=== PATIENT | male | born 1985 | race African-American/Black ===

== ENCOUNTER 2025-10-03 07:33 | Inpatient (IN) | payer MEDICAID, SELFPAY ==
[2025-10-03] VITALS (12 sets, daily range): BP systolic 122–149; BP diastolic 62–102; PULSE 88–162; RESP 15–24; TEMP 36.5–37.2; O2SAT 84–98; BMI 29.0; BMI 30.2
--- NOTE | ~2025-10-03 | XR_ITS ---
EXAMINATION: XR CHEST 1 VIEW HISTORY: SOB COMPARISON: There are no prior studies available for comparison. FINDINGS: A single AP portable view of the chest performed at 9:50 AM is submitted. The lungs are expanded and clear. There is no pleural effusion, pneumothorax, or pulmonary vascular congestion. The heart is normal in size. The bones are intact. XR/XR chest 1V IMPRESSION: Clear lungs. Electronically signed by: Dilip Hidalgo MD 10/03/2025 09:58 AM [facility]
--- NOTE | 2025-10-03 07:47 | ECG_ITS ---
Test Reason : RHYTHM CK Blood Pressure : */* mmHG Vent. Rate : 102 BPM Atrial Rate : 102 BPM P-R Int : 146 ms QRS Dur : 78 ms QT Int : 356 ms P-R-T Axes : 82 57 71 degrees QTcB Int : 463 ms Sinus tachycardia Nonspecific T wave abnormality Abnormal ECG No previous ECGs available Referred By: Olga Gonzalez Electronically Signed By: JOSE MAY MD
--- NOTE | 2025-10-03 07:49 | ED_ITS ---
HPI - SOB/Dyspnea General Chief Complaint: Dyspnea Stated Complaint: DIFF BREATHING,ASTHMA ATTACK,CPAP Time Seen by Provider: 10/03/25 07:37 Source: patient and EMS Mode of arrival: EMS Limitations: no limitations History of Present Illness ED Provider: DR. Farrell HPI Narrative: a 39-year-old male history of asthma came in for evaluation of difficulty breathing for the past 3 days, found by EMS in acute respiratory distress and O2 sat was 84% on room air patient was given bronchodilator by EMS with no improvement patient was placed on CPAP and was transported to the hospital on arrival O2 sat was improved to 95% was mild improvement of patient's symptoms. Patient was given 2 g of IV magnesium and to bronchodilators. No recent travel, no recent prolonged immobilization, no lower extremity swelling or tenderness, no fever, no chills. No history of cigarette smoking patient is smokes marijuana daily. Related Data Allergies Allergy/AdvReac Type Severity Reaction Status Date / Time No Known Allergies Allergy Verified 10/03/25 07:44 Review of Systems 2 Review of Systems: All other systems are reviewed and are negative Constitutional: Reports as per HPI and Reports no additional constitutional complaints Eyes: Reports as per HPI and Reports no additional eye complaints Reports system reviewed and no additional complaints, except as documented Cardiovascular: Reports as per HPI and Reports no additional cardiovascular complaints Respiratory: Reports as per HPI and Reports no additional respiratory complaints Gastrointestinal: Reports as per HPI and Reports no additional gastrointestinal complaints Genitourinary: Reports no additional female genitourinary complaints Musculoskeletal: Reports no additional musculoskeletal complaints Skin/Breast: Reports system reviewed and no additional complaints, except as docu Psychiatric: Reports no additional psychiatric complaints Endocrine: Reports no additional endocrine complaints Hematologic/Lymphatic: Reports no additional hematologic/lymphatic complaints Allergic/Immunologic: Reports no additional allergic/immunologic complaints Reports system reviewed and no additional complaints, except as documented and Reports Abnormal speech present [facility] Social History Social History Advance Directives: No Advance Directives Information Provided: Yes Do you have a plan to hurt others: No Plan Physical Exam 2 Vital Signs: Vital Signs: Last Vital Signs Temp 98.3 F 10/03/25 10:07 Pulse 94 10/03/25 10:07 Resp 15 10/03/25 10:07 BP 122/62 10/03/25 10:07 Pulse Ox 91 L 10/03/25 10:07 O2 Del Method Nasal Cannula 10/03/25 10:07 O2 Flow Rate 3 10/03/25 10:07 Oxygen Flow Rate 5 10/03/25 07:38 BMI result Body Mass Index 29.0 Vital signs have been reviewed and appear to be correct. Blood pressure elevated. Heart rate normal. Respiratory rate normal. Temperature normal. Oxygen saturation normal. Appearance: Alert. Oriented X3. No acute distress. Head: Normal external exam. Normocephalic. Atraumatic. No Valdez signs noted. No raccoon eyes noted Eyes: PERRLA. EOMI. Conjunctiva and sclera normal. Eyelids normal. ENT: TM's Normal. Pharynx normal. Uvula midline. Moist mucous membranes. No trismus noted. No drooling noted. No muffled voice noted. Neck: Normal inspection. Neck supple. FROM. No adenopathy. Thyroid Normal. No meningeal signs. No neck mass noted. CVS: Normal heart rate and rhythm. Heart sound normal. No murmurs noted. Pulses normal throughout. Respiratory: Mild diffuse expiratory wheezing with prolonged expiration, mild intercostal retraction. Abdomen: Soft and nontender. Bowel sounds normal in all 4 quadrants. No distention noted. No organomegaly noted. No visible injury noted. Back: No CVA tenderness. Full range of motion noted. Skin: Skin warm and dry. Normal skin color. Normal skin turgor. No rashes/lesions/lacerations noted. Extremities: No lower extremity edema. Extremities exhibit normal range of motion. Extremities nontender. Neuro: Oriented X 3. Cranial nerve exam: II-XII are grossly intact No motor deficit. No sensory deficit. Reflexes normal. Course Reevaluation(s) Reevaluation #1: 39 year old male history of asthma +/- COPD presented with acute respiratory distress and hypoxia improved with oxygen and bronchodilator in the ED. Admit the patient for intermittent hypoxia and bronchodilator if needed. Received 1 dose of empirical doxycycline, chest x-ray shows no pneumonia. Admit for O2 monitoring. Time: 10:26 Medications Administered Discontinued Medications Generic Name Dose Route Start Last Admin Trade Name Freq PRN Reason Stop Dose Admin Levalbuterol HCl 3.75 mg/ 0 mg 10/03/25 07:52 10/03/25 07:54 Ipratropium [place] 0.5 mg INHALE 10/03/25 07:53 1 dose ONCE ONE Administration Doxycycline Hyclate 100 mg/ 250 mls @ 166.67 mls/hr 10/03/25 07:47 10/03/25 09:44 Sodium Chloride IV 10/03/25 09:16 Infused ONCE ONE Infusion Medical Decision Making Differential Diagnosis Differential Diagnoses: The differential diagnosis associated with the presentation includes ( Acute asthma exacerbation, pneumonia, pneumothorax, pleural effusion, CHF, ACS.) Admission/Observation Consideration of admission/observation: Escalation of care including admission/observation considered Consult Healthcare Provider Management of the patient was discussed with: Hospitalist ( Dr. Wallace) Lab Data MDM Lab Attestation statement: I reviewed the patient's lab results. 10/03/25 07:52 10/03/25 07:52 Labs: Lab Results 10/03/25 10/03/25 10/03/25 Range/Units 07:52 07:57 08:08 WBC 10.2 (4.8-10.8) X10*3/uL RBC 4.78 (4.60-5.80) X10*6/uL Hgb 15.1 (14.0-18.0) g/dl Hct 44.7 (42.0-52.0) % MCV 93.5 (80.0-98.0) fL MCH 31.6 (27.0-33.0) pg MCHC 33.8 (31.0-36.0) g/dl RDW 11.8 (11.0-16.0) % Plt Count 253 (160-400) X10*3/uL MPV 9.0 L (9.4-12.4) fL Immature Gran % (Auto) 0.3 (0.0-0.4) % Neut % (Auto) 62.0 (45-73) % Lymph % (Auto) 20.5 (20-40) % Yell % (Auto) 8.3 (2-11) % Eos % (Auto) 8.5 H (0-4) % Baso % (Auto) 0.4 (0-2) % Lymph # (Auto) 2.1 (1.2-4.9) X10*3/uL Yell # (Auto) 0.9 (0.1-1.2) X10*3/uL Eos # (Auto) 0.9 H (0.0-0.4) X10*3/uL Baso # (Auto) 0.0 (0.0-0.2) X10*3/uL Abs Immat Gran (auto) 0.03 (0.00-0.03) X10*3/uL Absolute Neuts (auto) 6.3 (2.0-8.3) x10*3/uL Absolute Nucleated RBC 0.000 (0.0-0.012) X10*3/uL Nucleated RBC % (auto) 0.0 (0.0-0.2) /100WBC PT 11.2 (11.2-13.5) SEC INR 0.9 (0.9-1.1) Sodium 141 (135-145) mmol/L Potassium 3.9 (3.3-5.1) mmol/L Chloride 106 (96-108) mmol/L Carbon Dioxide 25 (22-29) mmol/L Anion Gap 14 (12-20) BUN 21 H (9-16) mg/dL Creatinine 1.11 (0.5-1.4) mg/dL Estim Creat Clear Calc 90.7 Estimated GFR > 60 Random Glucose 166 H (60-115) mg/dL Lactic Acid 1.2 (0.5-2.0) mmol/L Calcium 9.0 (8.4-10.2) mg/dL Total Bilirubin 1.2 H (0.0-1.0) mg/dL Direct Bilirubin 0.4 (0.0-0.5) mg/dL AST 39 H (5-37) U/L ALT 33 (0-40) U/L Alkaline Phosphatase 42 (39-117) U/L Troponin I High Sens 3.4 (<3.5-35.0) ng/L Total Protein 7.3 (6.5-8.0) g/dL Albumin 4.5 (3.5-5.0) g/dL Lipase 16 (8-78) U/L Influenza Type A (PCR) NEGATIVE (Negative) Influenza Type B (PCR) NEGATIVE (Negative) RSV RNA Qual (PCR) NEGATIVE (Negative) SARS-CoV-2 RNA (RT-PCR) NEGATIVE (Negative) Independent Interpretation I performed an independent interpretation of an: Plain X-Ray ( chest: Clear lungs) Radiology Impression Discussion of test interpretation with radiology: I have reviewed the radiologist's reading. Discharge Plan Discharge Clinical Impression: Asthma with exacerbation, Hypoxia Patient Disposition: Admitted As Inpatient Print Language: Danish
[2025-10-03] MEDS: levalbuterol HCL 3.75 MG, Ipratropium Bromide 0.5 MG INHALE (07:54)
[2025-10-03 07:57] LABS: MANUAL DIFF FLAG NO
[2025-10-03 08:01] LABS: Hematocrit 44.7 % (42.0-52.0); Hemoglobin 15.1 g/dl (14.0-18.0); Imm Gran Abs Auto 0.03 X10*3/uL (0.00-0.03); Imm Gran Pct Auto 0.3 % (0.0-0.4); Lymphocytes Absolute Auto 2.1 X10*3/uL (1.2-4.9); Mean Corpuscular HGB Conc 33.8 g/dl (31.0-36.0); Mean Corpuscular Hemoglobin 31.6 pg (27.0-33.0); Mean Corpuscular Volume 93.5 fL (80.0-98.0); NRBC Abs Auto 0.000 X10*3/uL (0.0-0.012); NRBC Pct Auto 0.0 /100WBC (0.0-0.2); Platelet Count 253 X10*3/uL (160-400); Red Blood Count 4.78 X10*6/uL (4.60-5.80); White Blood Count 10.2 X10*3/uL (4.8-10.8)
[2025-10-03 08:12] LABS: Alanine Aminotransferase 33 U/L (0-40); Albumin Level 4.5 g/dL (3.5-5.0); Alkaline Phosphatase 42 U/L (39-117); Anion Gap 14 (12-20); Aspartate Amino Transferase 39 U/L (5-37); Blood Urea Nitrogen 21 mg/dL (9-16); Calcium 9.0 mg/dL (8.4-10.2); Carbon Dioxide 25 mmol/L (22-29); Chloride 106 mmol/L (96-108); Creatinine Clr Calc Pharmacy 90.7; Estimated Glomerular Filt Rate > 60; Lipase 16 U/L (8-78); Potassium 3.9 mmol/L (3.3-5.1); Sodium 141 mmol/L (135-145); Total Protein 7.3 g/dL (6.5-8.0)
[2025-10-03 08:19] LABS: Troponin-I High Sensitivity 3.4 ng/L (<3.5-35.0)
[2025-10-03 08:20] LABS: INTERNATIONAL NORM RATIO 0.9 (0.9-1.1); Prothrombin Time 11.2 SEC (11.2-13.5)
[2025-10-03 08:39] LABS: Resp Syncy Virus RNA Qual PCR NEGATIVE (Negative); SARS COV2 PCR INHOUSE NEGATIVE (Negative)
--- NOTE | 2025-10-03 10:29 | PM.IMHP ---
[facility] Social History Advance Directives: No Advance Directives Information Provided: Yes Do you have a plan to hurt others: No Plan Meds Allergies Allergy/AdvReac Type Severity Reaction Status Date / Time No Known Allergies Allergy Verified 10/03/25 07:44 Physical Exam Vital Signs and Narrative: Vital Signs: Last Vital Signs Temp 98.3 F 10/03/25 10:07 Pulse 94 10/03/25 10:07 Resp 15 10/03/25 10:07 BP 122/62 10/03/25 10:07 Pulse Ox 91 L 10/03/25 10:07 O2 Del Method Nasal Cannula 10/03/25 10:07 O2 Flow Rate 3 10/03/25 10:07 Oxygen Flow Rate 5 10/03/25 07:38 BMI result Body Mass Index 29.0 Results Labs 10/03/25 07:52 10/03/25 07:52 Labs: Laboratory Results - last 24 hr 10/03/25 10/03/25 10/03/25 07:52 07:57 08:08 MCV 93.5 MCH 31.6 MCHC 33.8 RDW 11.8 Plt Count 253 MPV 9.0 L Immature Gran % (Auto) 0.3 Neut % (Auto) 62.0 Lymph % (Auto) 20.5 [place] % (Auto) 8.3 Eos % (Auto) 8.5 H Baso % (Auto) 0.4 Lymph # (Auto) 2.1 [place] # (Auto) 0.9 Eos # (Auto) 0.9 H Baso # (Auto) 0.0 Abs Immat Gran (auto) 0.03 Absolute Neuts (auto) 6.3 Absolute Nucleated RBC 0.000 Nucleated RBC % (auto) 0.0 PT 11.2 INR 0.9 Anion Gap 14 Estim Creat Clear Calc 90.7 Estimated GFR > 60 Random Glucose 166 H Lactic Acid 1.2 Calcium 9.0 Total Bilirubin 1.2 H Direct Bilirubin 0.4 AST 39 H ALT 33 Alkaline Phosphatase 42 Troponin I High Sens 3.4 Total Protein 7.3 Albumin 4.5 Lipase 16 Influenza Type A (PCR) NEGATIVE Influenza Type B (PCR) NEGATIVE RSV RNA Qual (PCR) NEGATIVE SARS-CoV-2 RNA (RT-PCR) NEGATIVE Imaging Radiologist's Impressions: Impressions Chest X-Ray 10/03/25 09:50 IMPRESSION: Clear lungs. Electronically signed by: Dilip Hidalgo MD 10/03/2025 09:58 AM [facility]
--- NOTE | 2025-10-03 11:20 | PHA.MEDREC ---
Addendum entered by Mook Caba, PharmD 10/03/25 12:03: [facility] reviewed. Spiriva is 2 puffs daily. Original Note: Pharmacy Consult ? Medication Reconciliation Pharmacy has completed the medication reconciliation. Spoke with pt and he confirmed he is only taking inhalers (Spiriva 1.25mcg 1 puff daily, Breo Ellipta 200-25mcg 1 puff daily and Ventolin 2 puffs Q4H PRN Shortness of Breath or Wheezing) and nothing else at this time for medications.
--- NOTE | 2025-10-03 12:19 | P.HPHOSP_ITS ---
History of Present Illness Date of Service: 10/03/25 Chief Complaint: Shortness of breath 39-year-old male with past medical history significant for mild persistent asthma. Brought in to [place] ED by EMS in acute respiratory distress with O2 sat 84% on room air. EMS treated patient with bronchodilator, place him on CPAP and oxygen. Patient complain of shortness of breath of 2-3 days' associated with cough, productive of clear phlegm, he denies fever, chills. Patient denies sick contacts he works at [employer], he has 2 cats not new, he has allergy to cold he started using his rescue inhaler more frequently in last 1 month. At baseline use albuterol and Breo he has been using them religiously with no significant improvement. In emergency room patient treated with 2 g of IV magnesium and 2 rounds of bronchodilators, at present he is on 2 L of oxygen, he is not on home O2. Patient denies history of tobacco use, he has been smoking marijuana occasionally. He denies recent history of travel. Review of Systems 2 Review of Systems: General no headache no dizziness no fever chills. CVS no chest pain, no palpitation. Respiratory shortness of breath and cough Gastrointestinal no nausea no vomiting, no abdominal pain no urgency, no frequency All other system reviewed and are negative PMFSH Social History Advance Directives: No Advance Directives Information Provided: Yes Do you have a plan to hurt others: No Plan Meds Allergies Allergy/AdvReac Type Severity Reaction Status Date / Time No Known Allergies Allergy Verified 10/03/25 07:44 Home Medications ?Medication ?Instructions ?Recorded ?Confirmed ?Last Taken ?Type albuterol sulfate 90 mcg/actuation 2 puff inhalation Q 4-6H PRN 10/03/25 10/03/25 Unknown History aerosol inhaler (Ventolin HFA) wheezing fluticasone furoate 200 1 inh inhalation DAILY 10/0310/03/25 10/03/25 History mcg-vilanterol 25 mcg/dose inhalation powder (Breo Ellipta) tiotropium bromide 1.25 2 puff inhalation DAILY 09/1210/03/25 10/03/25 History mcg/actuation mist for inhalation (Spiriva Respimat) Physical Exam 2 Vital Signs and Narrative: Vital Signs: Last Vital Signs Temp 98.3 F 10/03/25 10:07 Pulse 94 10/03/25 10:07 Resp 15 10/03/25 10:07 BP 122/62 10/03/25 10:07 Pulse Ox 91 L 10/03/25 10:07 O2 Del Method Nasal Cannula 10/03/25 10:07 O2 Flow Rate 3 10/03/25 10:07 Oxygen Flow Rate 5 10/03/25 07:38 BMI result Body Mass Index 29.0 Const: Other: General well-developed gentleman mild respiratory distress, tachypnea Neck supple no JVD. CVS regular rate rhythm, Respiratory lungs bilateral expiratory wheeze Gastrointestinal abdomen soft, non tender, bowel sounds audible, no guarding , no rigidity. Extremities no edema. Neuro nonfocal Skin no rash Psych appropriate affect Results Labs 10/03/25 07:52 10/03/25 07:52 Labs: Laboratory Results - last 24 hr 10/03/25 10/03/25 10/03/25 07:52 07:57 08:08 MCV 93.5 MCH 31.6 MCHC 33.8 RDW 11.8 Plt Count 253 MPV 9.0 L Immature Gran % (Auto) 0.3 Neut % (Auto) 62.0 Lymph % (Auto) 20.5 [place] % (Auto) 8.3 Eos % (Auto) 8.5 H Baso % (Auto) 0.4 Lymph # (Auto) 2.1 [place] # (Auto) 0.9 Eos # (Auto) 0.9 H Baso # (Auto) 0.0 Abs Immat Gran (auto) 0.03 Absolute Neuts (auto) 6.3 Absolute Nucleated RBC 0.000 Nucleated RBC % (auto) 0.0 PT 11.2 INR 0.9 Anion Gap 14 Estim Creat Clear Calc 90.7 Estimated GFR > 60 Random Glucose 166 H Lactic Acid 1.2 Calcium 9.0 Total Bilirubin 1.2 H Direct Bilirubin 0.4 AST 39 H ALT 33 Alkaline Phosphatase 42 Troponin I High Sens 3.4 Total Protein 7.3 Albumin 4.5 Lipase 16 Influenza Type A (PCR) NEGATIVE Influenza Type B (PCR) NEGATIVE RSV RNA Qual (PCR) NEGATIVE SARS-CoV-2 RNA (RT-PCR) NEGATIVE Imaging Radiologist's Impressions: Impressions Chest X-Ray 10/03/25 09:50 IMPRESSION: Clear lungs. Electronically signed by: Dilip Hidalgo MD 10/03/2025 09:58 AM [facility] Assessment and Plan (1) Asthma with exacerbation: Status: Acute (2) Hypoxia: Status: Acute Plan 39-year-old gentleman with history of mild persistent asthma presented with shortness of breath of 2-3 days' duration. Patient arrived on CPAP and oxygen. Acute hypoxic respiratory failure due to exacerbation of mild persistent asthma. Chest x-ray negative, influenza, RSV and COVID negative IV Solu Medrol 40 mg b.i.d., DuoNeb q.4 hours scheduled and as needed continue Breo IV doxycycline, cough medication, wean oxygen as tolerated not on home O2 Strongly recommend to abstain from marijuana History of alcohol use disorder Currently drink alcohol occasionally Code status full code DVT prophylaxis early ambulation In my clinical judgment patient requires 2 midnight inpatient hospitalization for management of acute hypoxic respiratory failure requiring IV steroids updraft treatment, since had no response to home inhalers. Quality Stroke Does the patient have a stroke diagnosis?: No VTE Prior VTE?: No VTE Risk Level:: Medical - low VTE Device Contraindication: Treatment Not Indicated VTE Drug Contraindication: Treatment Not Indicated
--- NOTE | 2025-10-03 14:00 | HO.NURTONUR ---
Pt is a 39yo M coming from home with hx of asthma, 2-3 days SOB. Denies fevers/chills. +productive cough. Inc inhaler use. Pt received IV mag and bronchodilators RN ED. Initial RA sat 84%. Arrived on CPAP. Pt is now on 2LNC. Satting 93-94%. Afebrile. A/ox3. Denies c/o at this time. VSS. 18g LAC and 20gRFA. Bld cxs drawn and IVabx given.
[2025-10-03] MEDS: Albuterol/Iprat 2.5/0.5MG 3 ML AMPUL.NEB INHALE ×2 (15:32→19:20)
[2025-10-03] MEDS: 0.9 % Sodium Chloride Flush 3 ML SYRINGE IVFLUSH (20:20)
[2025-10-04 03:29] VITALS: BP 122/68; PULSE 91; RESP 18; TEMP 36.7; O2SAT 95
--- NOTE | 2025-10-04 07:16 | HO.PM.IMPN ---
Subjective Subjective Date of Service: 10/04/25 Physical Exam Vital Signs: Vital Signs: Last Vital Signs Temp 98.1 F 10/04/25 03:29 Pulse 91 10/04/25 03:29 Resp 18 10/04/25 03:29 BP 122/68 10/04/25 03:29 Pulse Ox 95 10/04/25 03:29 O2 Del Method Room Air 10/04/25 03:29 O2 Flow Rate 2 10/03/25 19:47 Oxygen Flow Rate 5 10/03/25 07:38 BMI result Body Mass Index 30.2 Objective Data Active Medications Acetaminophen (Acetaminophen 325 Mg Tablet) 650 mg PO Q6H PRN PRN Reason: Pain, Mild 1-3,fever,headache Al Hydroxide/Mg Hydroxide (Magnesium Hydrox/Alum Hydrox 30 Ml Oral.Susp) 30 ml PO Q4H PRN PRN Reason: Heartburn Albuterol/Ipratropium (Albuterol/Iprat 2.5/0.5mg 3 Ml Ampul.Neb) 3 ml INHALE Q4H PRN PRN Reason: sob Albuterol/Ipratropium (Albuterol/Iprat 2.5/0.5mg 3 Ml Ampul.Neb) 3 ml INHALE RQ4H WHILE AWAKE [facility] Last Admin: 10/03/25 19:20 Dose: 3 ml Documented By: JULIANE Benzonatate (Benzonatate 100 Mg Capsule) 100 mg PO TID PRN PRN Reason: Cough Calcium Carbonate (Calcium Carbonate 750 Mg Tab.Chew) 750 mg PO Q4H PRN PRN Reason: Heartburn Fluticasone/Vilanterol (Fluticasone/Vilanterol 200/25 Blst.W.Dev) 1 puff INHALE RDAILY [facility] Doxycycline Hyclate 100 mg/ (Sodium Chloride) 250 mls @ 166.67 mls/hr IV BID [facility] Last Infusion: 10/03/25 21:50 Dose: Infused Documented By: SARAH Loratadine (Loratadine 10 Mg Tablet) 10 mg PO DAILY [facility] Last Admin: 10/03/25 13:51 Dose: 10 mg Documented By: SAMANTHA Magnesium Hydroxide (Milk Of Magnesia 30 Ml Oral.Susp) 30 ml PO DAILY PRN PRN Reason: Constipation Melatonin (Melatonin 3 Mg Tablet) 6 mg PO BEDTIME PRN PRN Reason: Insomnia Methylprednisolone Sodium Succinate (Methylprednisolone Sod Succ 40 Mg/Ml Vial) 40 mg IVPUSH BID [facility] Last Admin: 10/03/25 20:20 Dose: 40 mg Documented By: SARAH Ondansetron HCl (Ondansetron Hcl 4 Mg/2 Ml Vial) 4 mg IVPUSH Q8H PRN PRN Reason: Nausea and Vomiting Polyethylene Glycol (Polyethylene Glycol 3350 17 Gm Powd.Pack) 17 gm PO DAILY PRN PRN Reason: Constipation Sodium Chloride (0.9 % Sodium Chloride Flush 3 Ml Syringe) 3 ml IVFLUSH QSHIFT [facility] Last Admin: 10/03/25 20:20 Dose: 3 ml Documented By: SARAH Labs 10/03/25 07:52 10/03/25 07:52 Labs: Laboratory Results - last 24 hr 10/03/25 10/03/25 10/03/25 07:52 07:57 08:08 MCV 93.5 MCH 31.6 MCHC 33.8 RDW 11.8 Plt Count 253 MPV 9.0 L Immature Gran % (Auto) 0.3 Neut % (Auto) 62.0 Lymph % (Auto) 20.5 [place] % (Auto) 8.3 Eos % (Auto) 8.5 H Baso % (Auto) 0.4 Lymph # (Auto) 2.1 [place] # (Auto) 0.9 Eos # (Auto) 0.9 H Baso # (Auto) 0.0 Abs Immat Gran (auto) 0.03 Absolute Neuts (auto) 6.3 Absolute Nucleated RBC 0.000 Nucleated RBC % (auto) 0.0 PT 11.2 INR 0.9 Anion Gap 14 Estim Creat Clear Calc 90.7 Estimated GFR > 60 Random Glucose 166 H Lactic Acid 1.2 Calcium 9.0 Total Bilirubin 1.2 H Direct Bilirubin 0.4 AST 39 H ALT 33 Alkaline Phosphatase 42 Troponin I High Sens 3.4 Total Protein 7.3 Albumin 4.5 Lipase 16 Influenza Type A (PCR) NEGATIVE Influenza Type B (PCR) NEGATIVE RSV RNA Qual (PCR) NEGATIVE SARS-CoV-2 RNA (RT-PCR) NEGATIVE Quality Stroke Does the patient have a stroke diagnosis?: No VTE Prior VTE?: No VTE Risk Level:: Medical - low VTE Device Contraindication: Treatment Not Indicated VTE Drug Contraindication: Treatment Not Indicated
[2025-10-04 07:46] VITALS: BP 126/75; PULSE 64; RESP 18; TEMP 36.8; O2SAT 95
[2025-10-04 07:50] VITALS: PULSE 84; RESP 18; O2SAT 93
[2025-10-04] MEDS: Albuterol/Iprat 2.5/0.5MG 3 ML AMPUL.NEB INHALE ×2 (07:50→11:31)
[2025-10-04] MEDS: 0.9 % Sodium Chloride Flush 3 ML SYRINGE IVFLUSH (09:46)
[2025-10-04] MEDS: Fluticasone/Vilanterol 200/25 BLST.W.DEV 1 PUFF INHALE (09:51)
--- NOTE | 2025-10-04 10:22 | MHC.CM.PN ---
Pt. is functionally indepedent, he does not use home health services. He does not have a PCP, brochure given. Pt. to DC today, [facility] shuttle to transport, DCP: home, self care.
[2025-10-04 11:32] VITALS: PULSE 100; RESP 18; O2SAT 96
--- NOTE | 2025-10-04 12:02 | P.DS_ITS ---
DS: Providers Provider Date of admission: 10/03/25 10:43 Date of discharge: 10/04/25 Primary care physician: None Physician DS: Diagnosis Discharge Diagnosis (1) Asthma with exacerbation: Status: Acute (2) Hypoxia: Status: Acute DS: Summary Hospital Course Hospital Course: Chief Complaint: Shortness of breath 39-year-old male with past medical history significant for mild persistent asthma. Brought in to [facility] by EMS in acute respiratory distress with O2 sat 84% on room air. EMS treated patient with bronchodilator, place him on CPAP and oxygen. Patient complain of shortness of breath of 2-3 days' associated wi th cough, productive of clear phlegm, he denies fever, chills. Patient denies sick contacts he works at [employer], he has 2 cats not new, he has allergy to cold he started using his rescue inhaler more frequently in last 1 month. At baseline use albuterol and Breo he has been using them religiously with no significant improvement. In emergency room patient treated with 2 g of IV magnesium and 2 rounds of bronchodilators, at present he is on 2 L of oxygen, he is not on home O2. Patient denies history of tobacco use, he has been smoking marijuana occasionally. He denies recent history of travel. Hospital Course: The patient presented with 2?3 days of worsening shortness of breath and arrived on CPAP with supplemental oxygen. Initial evaluation showed acute hypoxic respiratory failure secondary to an asthma exacerbation. Chest X-ray was negative, and infectious testing including influenza, RSV, and COVID was negative. He was treated with IV methylprednisolone 40 mg twice daily, scheduled and as- needed DuoNeb treatments, continuation of home Breo, cough medication, and supplemental oxygen. IV doxycycline was initiated. The patient demonstrated rapid clinical improvement with resolution of hypoxia, was successfully weaned off oxygen, and no longer required CPAP. Symptoms improved significantly within a short period of observation. Although inpatient hospitalization for a 2-midnight stay was initially anticipated due to the severity of presentation and need for IV steroids and frequent nebulizer treatments, the patient experienced a [id number] recovery and requested discharge due to the upcoming holiday. At the time of discharge, he was breathing comfortably on room air, hemodynamically stable, and ambulating without difficulty. Time spent discussing smoking cessation with patient: more than 10 minutes Status at Discharge Functional status at discharge: independent ambulation Overall status at discharge: patient is back to baseline Time Attestation Discharge Coordination Time (in mins): 55 Quality: Safe Use of Opioids Does Pt have an Active Cancer Diagnosis on the Problem List?: No Quality: Stroke Does the patient have a stroke diagnosis?: No Physical Exam Exam: Exam: General: AOx3, no acute distress Resp: CTA bilaterally CVS: S1, S2, RRR GI: +BS, NT, no distention Skin: Warm, dry Neuro: Cranial nerves II-XII grossly intact bilaterally. Motor grossly intact bilaterally Extremities: No edema Psych: Appropriate affect Vital Signs: Vital Signs: Last Vital Signs Temp 98.3 F 10/04/25 07:46 Pulse 100 10/04/25 11:32 Resp 18 10/04/25 11:32 BP 126/75 10/04/25 07:46 Pulse Ox 95 10/04/25 07:46 O2 Del Method Room Air 10/04/25 07:46 O2 Flow Rate 2 10/03/25 19:47 Oxygen Flow Rate 5 10/03/25 07:38 BMI result Body Mass Index 30.2 DS: Data Data Completed and Pending Labs on day of discharge: Preliminary micro results at discharge 10/03/25 08:08 Blood Culture - Preliminary Blood - Venous No growth after 24 hours. 10/03/25 07:57 Blood Culture - Preliminary Blood - Venous No growth after 24 hours. Discharge Plan Discharge Anticipated Discharge Date/Time: 10/04/25 11:52 Patient Disposition: Home, Self-Care Discharge Diagnosis: Asthma exacerbation Referrals: Physician,None [Primary Care Provider, Medical] - 1 Week Discharge Medications: New doxycycline hyclate [Doxy-100] 100 mg Recon Soln 100 mg IV BID 3 Days Qty: 6 0RF loratadine 10 mg Tablet 10 mg PO DAILY 30 Days Qty: 30 0RF benzonatate 100 mg Capsule 100 mg PO TID PRN (Reason: Cough) 14 Days Qty: 60 3RF prednisone 20 mg tablet 40 mg PO DAILY 10 Days Qty: 20 0RF Continued albuterol sulfate [Ventolin HFA] 90 mcg/actuation HFA aerosol inhaler 2 puff inhalation Q4-6H PRN (Reason: wheezing) fluticasone furoate-vilanterol [Breo Ellipta] 200-25 mcg/dose blister with device 1 inh inhalation DAILY Spiriva Respimat 1.25 mcg/actuation mist 2 puff inhalation DAILY Discharge Orders: Discharge Order (Routine); Ordered 10/04/25 Ordered By: Olga Gonzalez Diet: Advance to usual diet Activity on Discharge: As tolerated Stand Alone Forms: Patient Portal Discharge page Print Language: Amharic Care Plan Goals: Medications: Take all prescribed medications as directed. Complete the full course of oral steroids if prescribed. Use rescue inhaler (albuterol) as needed for shortness of breath or wheezing. Continue daily controller inhaler(s) as prescribed. Do not stop maintenance inhalers even if symptoms improve. Activity and Home Care: Resume normal activities as tolerated. Avoid known asthma triggers, including smoke, strong odors, cold air, and respiratory infections. Maintain adequate hydration. Monitoring and Asthma Action Plan: Monitor symptoms such as cough, wheeze, chest tightness, or shortness of breath. If you have a peak flow meter, check peak flows as instructed and follow your asthma action plan. Return Precautions (Seek Medical Care Urgently If): Shortness of breath not relieved by rescue inhaler. Need for rescue inhaler more frequently than every 4 hours. Worsening wheezing, chest tightness, or difficulty speaking in full sentences. Bluish lips or fingernails, severe fatigue, or confusion. Fever, chest pain, or any new or concerning symptoms. Follow-Up: Follow up with your primary care provider or instrumentation fitter within 1 week. Review inhaler technique and asthma action plan at follow-up. Health Concerns: See above Plan of Treatment: See above Assessment: See above
[2025-10-04 12:28] VITALS: BP 140/82; PULSE 103; RESP 18; TEMP 36.8; O2SAT 94
--- NOTE | 2025-10-04 12:50 | PC.NURSE ---
Discharge instructions reviewed with patient. Provider Lisa aware of discharge vitals and HR, patient asymptomatic, reports feeling jittery . Patient reports still feeling well to get discharged. Provider okay'd to continue with discharge.
== END 2025-10-04 12:52 | disposition home or self-care (01) | DRG 141 ==
LOC: HO.ED 10:30 → HO.EDOVER 10:43 → HO.S3 13:39
PROVIDERS: Admitting Provider Internal Medicine; Emergency Provider Emergency Medicine; Visit Provider Student in an Organized Health Care Education/Training Program
DX: J45.31 Mild persistent asthma with (acute) exacerbation (principal); J96.01 Acute respiratory failure with hypoxia; Z20.822 Contact with and (suspected) exposure to COVID-19; Z79.51 Long term (current) use of inhaled steroids; Z79.899 Other long term (current) drug therapy
CPT/HCPCS: 36415; 71045; 80048; 80076; 83605; 83690; 84484; 85025; 85610; 87040; 87637; 93005; 94640; 99285; J1271; J2919

== ENCOUNTER → 2025-10-03 07:47 | Outpatient (BNV) | payer MEDICAID, SELFPAY | PROVIDERS: Emergency Provider Emergency Medicine; Visit Provider Radiology Diagnostic Radiology | DX: R06.02 Shortness of breath (principal) | CPT/HCPCS: 71045 ==

== ENCOUNTER → 2025-10-03 07:47 | Outpatient (BNV) | payer MEDICAID, SELFPAY | PROVIDERS: Admitting Provider Internal Medicine; Emergency Provider Emergency Medicine; Visit Provider Internal Medicine Cardiovascular Disease | DX: R00.0 Tachycardia, unspecified (principal) | CPT/HCPCS: 93010 ==

== ENCOUNTER → 2025-10-03 10:43 | Outpatient (BNV) | payer MEDICAID, SELFPAY | PROVIDERS: Admitting Provider Internal Medicine; Emergency Provider Emergency Medicine; Visit Provider Hospitalist | DX: J96.01 Acute respiratory failure with hypoxia (principal); J45.901 Unspecified asthma with (acute) exacerbation | CPT/HCPCS: 99222; 99239 ==